=== PATIENT | female | born 1995 | race Caucasian/White ===

== ENCOUNTER 2018-07-11 12:24 | Outpatient (CLI) | payer MEDICAID ==
[~2018-07-11] VITALS: Ht 157.5 cm; Wt 85.9 kg
[2018-07-11 12:28] VITALS: Ht 157.5 cm; Wt 85.9 kg
[2018-07-11] MEDS ORDERED: PREN1TAB71 PO (12:30)
[2018-07-11 12:41] VITALS: BP 115/73; PULSE 88; RESP 18
--- NOTE | 2018-07-11 14:25 | PN ---
Triage Information Date/Time Reason for visit: Uterine contractions Weeks of Gestation 28+ /Para n/a Diabetes: none Hypertention: none Objective Vital Signs Date Temp Pulse Resp B/P (MAP) Pulse Ox O2 O2 Flow FiO2 Time Delivery Rate 07/11/18 98.2 88 18 115/73 Room Air 12:41 (87) Heart Rate: 140's Contractions: None Results/Medications Result Diagram: 07/11/18 1330 07/11/18 1330 Results 24 hrs Laboratory Tests Test 07/11/18 13:11 07/11/18 13:30 Fibronectin NEGATIVE White Blood Count 9.7 Red Blood Count 4.11 L Hemoglobin 12.1 Hematocrit 36.5 L Mean Corpuscular Volume 88.8 Mean Corpuscular Hemoglobin 29.4 Mean Corpuscular Hemoglobin Concent 33.2 Red Cell Distribution Width 13.3 Platelet Count 237 Mean Platelet Volume 9.4 Immature Granulocytes % 1.200 H Neutrophils % 63.5 Lymphocytes % 21.6 Monocytes % 8.1 Eosinophils % 5.3 Basophils % 0.3 Nucleated Red Blood Cells % 0.0 Immature Granulocytes # 0.120 H Neutrophils # 6.2 Lymphocytes # 2.1 Monocytes # 0.8 Eosinophils # 0.5 Basophils # 0.0 Nucleated Red Blood Cells # 0.0 Sodium Level 138 Potassium Level 3.9 Chloride Level 104 Carbon Dioxide Level 28 Anion Gap 6 Blood Urea Nitrogen 6 L Creatinine 0.44 Est Glomerular Filtrat Rate mL/min > 60 Glucose Level 89 Calcium Level 9.5 Total Bilirubin 0.3 Direct Bilirubin 0.00 Indirect Bilirubin 0.3 Aspartate Amino Transf (AST/SGOT) 21 Alanine Aminotransferase (ALT/SGPT) 23 Alkaline Phosphatase 84 Total Protein 6.8 Albumin 3.6 Globulin 3.20 Albumin/Globulin Ratio 1.12 Disposition: Discharge Assessment/Plan Bpp 01/13 Labs reviewed CXL WNL Precautions discussed Questions answered Sent to ER for further work up BRANNON CONTRERAS M.D. Jul 11, 2018 14:25
--- NOTE | 2018-07-11 14:40 | TRIAGE ---
OB Triage Datetime Report Generated by CPN: 07/11/2018 14:39 Datetime: 07/11/2018 14:00 Labor Evaluation Frequency: occ Monitor Mode: External Duration (sec)2399: 50-60 Quality: Mild Pattern: Normal: <= 5 Contractions in 10 Minutes Resting Tone Post Falls: Relaxed Heart Rate FHR Baseline Rate: 145 Monitor Mode: External US Variability: Moderate 6-25 bpm Accelerations: 15X15 Decelerations: Variable Category: Category II Comments: appropriate for gestational age Pain Assessment Pain Presence: None/Denies Datetime: 07/11/2018 13:00 Labor Evaluation Frequency: irreg Monitor Mode: External Duration (sec)2399: 40-50 Quality: Mild Pattern: Normal: <= 5 Contractions in 10 Minutes Resting Tone Post Falls: Relaxed Heart Rate FHR Baseline Rate: 140 Monitor Mode: External US Variability: Moderate 6-25 bpm Accelerations: 15X15 Decelerations: Variable Category: Category II Pain Assessment Pain Presence: None/Denies Datetime: 07/11/2018 12:37 Stage of : OB Triage Assessment Type: Triage Maternal Assessment Level of Consciousness: Fully Conscious Headache: Denies Blurred Vision: No Respiratory Effort: Unlabored; Regular Rhythm; Equal Expansion Breath Sounds, Left: Clear and Equal Breath Sounds, Right: Clear and Equal Nausea/Vomiting: Present RUQ Epigastric Pain: Present (Annotations: last vomitted today at midnight) Lower Extremities Edema: None Degree: None Upper Extremities Edema: None Degree: None Facial Edema: None Fall Risk Assessment History of Falling: (0) No Secondary Diagnosis: (0) No Ambulatory Aid: (0) Bedrest/Nurse Assist IV Therapy: (0) No Gait: (0) Normal/Bedrest/Immobile Mental Status: (0) Oriented to Own Ability Fall Score: 0 Fall Risk Score Definition: No Risk: No action required Datetime: 07/11/2018 12:36 Time of Arrival: 07/11/2018 12:18 EGA: 28.3 Arrived By: Wheelchair Arrived From: Home Movement: Present Contractions: Occasional Rupture of Membranes: Denies Vaginal Bleeding: None Vaginal Discharge: Denies Recent Sexual Intercouse: Denies Abdominal Trauma: Not Applicable Patient Complaints: Nausea; Vomiting; Cough Time Provider Notified: 07/11/2018 12:42 Provider Notified: Shen Initial Plan: nichol stubbs
[2018-07-11] MEDS ORDERED: BEN25 PO (15:14)
== END 2018-07-11 14:28 | disposition home or self-care (01) ==
LOC: OBT 12:24 → L-D 12:25 → OBT 14:28
PROVIDERS: ATTEND Obstetrics & Gynecology
DX: O62.9 Abnormality of forces of labor, unspecified (principal); Z3A.28 28 weeks gestation of pregnancy
CPT/HCPCS: 36415; 76817; 76818; 80053; 82731; 85025; Z7500; G0463

== ENCOUNTER 2018-07-11 14:32 | Emergency (ER) | payer MEDICAID ==
[~2018-07-11] VITALS: Ht 160 cm; Wt 85.5 kg
[~2018-07-11 14:32] MED LIST: PREN1TAB71 PO
[2018-07-11 14:42] VITALS: BP 116/56; PULSE 73; RESP 20; Ht 160 cm; Wt 85.5 kg
[2018-07-11] MEDS ORDERED: BEN25 PO (15:14)
--- NOTE | 2018-07-11 16:11 | ERD ---
ER Documentation Chief Complaint Chief Complaint c/o cough for a while, was here recently. Afebrile HPI 22-year-old female patient with no significant past medical history presents to ED complaining of a productive cough that started intermittently for the last 2 weeks. States that her is also sick with the cough. Patient currently is 28 weeks . States that she is unsure what her last menstruation date was. Denies any vaginal bleeding, vaginal discharge, dysuria, urgency, frequency, abdominal pain, chest pain, shortness of breath. ROS All systems reviewed and are negative except as per history of present illness. Medications Home Meds Active Scripts Diphenhydramine Hcl* (Benadryl*) 25 Mg Cap, 25 MG PO Q6, #30 CAP Prov:JAMAR FOURNIER PA-C 07/11/18 Reported Medications Vit No.130/Iron/FA ( Tablet) 1 Each Tablet, 1 EACH PO, TAB 07/11/18 Allergies Allergies: Coded Allergies: No Known Allergy (Unverified , 07/11/18) PMhx/Soc Medical and Surgical Hx: pt denies Medical Hx, pt denies Surgical Hx Hx Alcohol Use: No Hx Substance Use: No Hx Tobacco Use: No FmHx Family History: No diabetes, No coronary disease Physical Exam Vitals Vital Signs Date Temp Pulse Resp B/P (MAP) Pulse Ox O2 O2 Flow FiO2 Time Delivery Rate 07/11/18 98.6 73 20 116/56 99 14:42 (76) Physical Exam Const: Gwn-ywp-[id number], well-nourished. In no acute distress. Head: Atraumatic, normocephalic Eyes: Normal Conjunctiva without injection. No purulent discharge. PERRL. EOMI ENT: Normal external ear. Ear canal without erythema. Tympanic membrane pearly barahona without effusion or bulging. Nasal canal clear with normal turbinates. Moist oropharynx without tonsillar exudates. Non-erythematous pharynx. Uvula midline. No drooling. No trismus. Neck: Full range of motion. No meningismus. No cervical lymphadenopathy. Resp: Clear to auscultation bilaterally. No wheezing, rhonchi, rales, or crackles. No accessory muscle use. No retractions. Cardio: Regular rate and rhythm. No murmurs, rubs or gallops. Abd: Soft, non tender, non distended. Normal bowel sounds. No palpable masses. No rebound tenderness. No guarding. Skin: No petechiae or rashes Back: No midline tenderness. No CVA tenderness. Ext: No cyanosis, or edema. Neur: Awake and alert. Psych: Normal Mood and Affect Procedures/MDM 22-year-old female patient with no significant past medical history presents to ED for complaining of a productive cough that started 2 weeks ago during her . Patient is afebrile and nontoxic-appearing. This patient presents to the ED with symptoms consistent with a viral acute upper respiratory infection. Patient is afebrile and has normal vital signs. Patient's physical exam include lungs which were clear to auscultation and a normal pulse oximetry. There is a low suspicion for a croup, pneumonia, pneumothorax, strep pharyngitis, otitis media, otitis externa, sinusitis, peritonsillar abscess, foreign body aspiration, mastoiditis, retropharyngeal abscess, epiglottitis, meningitis, sepsis or other emergent conditions. Patient is not complaining of any vaginal bleeding, dysuria, abdominal pain. Low suspicion for symptomatic anemia, ectopic , sepsis, urinary tract infection, PID, appendicitis, ovarian torsion, tubo-ovarian abscess, surgical abdomen, or other emergent conditions. Diagnosis: Cough Discharge medications: Benadryl Follow up with primary care physician in 1-2 days. Instructed patient to return to the ED sooner for any worsening symptoms. Patient's questions were answered. Patient is hemodynamically stable. Patient understood and agreed with discharge plan. Patient discharged stable. Disclaimer: Inadvertent spelling and grammatical errors are likely due to EHR/dictation software use and do not reflect on the overall quality of patient care. Also, please note that the electronic time recorded on this note does not necessarily reflect the actual time of the patient encounter. Departure Diagnosis: Primary Impression: Cough Condition: Stable Patient Instructions: Uri, Viral, No Abx (Adult) Referrals: DIRECTOR [employer]ESSIONAL SERVICES [place] [id number] [address] OFFICE FAX SAJAN DE LA VEGA [address] [place] [address] [address] [address] [place] [address] DR STEVENS, [facility] [address] [facility], [address], [place] [address] [address] [facility] [address] [place] [address] [facility] [address] [place] [address] [facility] [address] - [address] RIVER, SONIDO [address] [place] [address] DR REESE, KORIN [address] [facility]. [address], [place] [address] DR LOCO, [facility] [address] [place], [place] [id number] [facility] Hours: 8:00 am - 5:00 pm [facility] () Usted se rangel hecho un examen mdico de control que le indica que no est en adonay condicin que requiera tratamiento urgente en el Departamento de Emergencia. Un estudio ms profundo y el tratamiento de randolph condicin pueden esperar sin ningn riesgo hasta que usted sea atendida/o en el consultorio de randolph mdico o adonay clnica. Es responsabilidad suya arreglar adonay marifer para el seguimiento del scot. MANEJO DE CONDICIONES NO URGENTES EN EL FUTURO 1) Si usted tiene un mdico de atencin primaria: Usted debera llamar a randolph mdico de atencin primaria antes de venir al departamento de emergencia. Despus de las horas de consultorio, randolph doctor o randolph asociado/a est disponible por telfono. El mdico o enfermero de radha en el servicio telefnico puede asesorarle por nely medio para atender el problema, o scot contrario se puede programar adonay marifer. 2) Si usted no tiene un mdico de atencin primaria: Llame al mdico o clnica de referencia que aparece abajo nuno las horas de consultorio para hacer adonay marifer para que le vean. CLINICAS: [facility] [phone] [address] [facility] [phone] [facility] [phone] [place] [address] [phone] [place] [address] [phone] [facility] [phone] [address] [facility]. [facility] () Usted se rangel hecho un examen mdico de control que le indica que no est en adonay condicin que requiera tratamiento urgente en el Departamento de Emergencia. Un estudio ms profundo y el tratamiento de randolph condicin pueden esperar sin ningn riesgo hasta que usted sea atendida/o en el consultorio de randolph mdico o adonay clnica. Es responsabilidad suya arreglar adonay marifer para el seguimiento del scot. MANEJO DE CONDICIONES NO URGENTES EN EL FUTURO 1) Si usted tiene un mdico de atencin primaria: Usted debera llamar a randolph mdico de atencin primaria antes de venir al departamento de emergencia. Despus de las horas de consultorio, randolph doctor o randolph asociado/a est disponible por telfono. El mdico o enfermero de radha en el servicio telefnico puede asesorarle por nely medio para atender el problema, o scot contrario se puede programar adonay marifer. 2) Si usted no tiene un mdico de atencin primaria: Llame al mdico o condado institucions de referencia que aparece abajo nuno las horas de consultorio para hacer adonay marifer para que le vean. SI USTED NO PUEDE PAGAR PARA MADDIE UN MEDICO puede ir a: [facility] [address] [place] [address] [facility] [address] [place] [address] [facility] [address] [place] [address] [facility] [address] [place], [place] [id number] Additional Instructions: Llame al doctor MAANA y paramjit adonay MARIFER PARA DENTRO DE 2-3 ANSARI.Dgale a la secretaria que nosotros le instruimos hacer esta marifer.Avise o llame si randolph cond icin se empeora antes de la marifer. Regresa aqui si peor o no mejor. JAMAR FOURNIER PA-C Jul 11, 2018 16:11
== END 2018-07-11 15:30 | disposition home or self-care (01) ==
LOC: FTE 14:32
DX: O99.52 Diseases of the respiratory system complicating childbirth (principal); R05 Cough; Z3A.28 28 weeks gestation of pregnancy
CPT/HCPCS: 99282

== ENCOUNTER 2018-09-29 03:15 | Inpatient (IN) | payer MEDICAID ==
[~2018-09-29] VITALS: Ht 157.5 cm; Wt 92.0 kg
[~2018-09-29 03:15] MED LIST changes: +BEN25 PO
[2018-09-29 03:57] VITALS: Ht 157.5 cm; Wt 92.0 kg
[2018-09-29 03:58] VITALS: BP 135/93; PULSE 18; RESP 18
[2018-09-29] MEDS ORDERED: LACTATED RINGER'S 1,000 ML IV PRN (04:01)
[2018-09-29] MEDS ORDERED: OXYTOCIN 30 UNITS/LR 500 ML IV PRN (04:30)
[2018-09-29] MEDS ORDERED: OXYTOCIN 30 UNITS/LR 500 ML IV SCH ×2 (04:30)
[2018-09-29] MEDS ORDERED: MISOPROSTOL 200 MCG TAB PR PRN (04:30)
[2018-09-29] MEDS ORDERED: MISOPROSTOL 50 MCG CAPSULE PO PRN (04:30)
[2018-09-29] MEDS ORDERED: LIDOCAINE 1% (MPF) 30 ML INJ INJ PRN (04:30)
[2018-09-29] MEDS ORDERED: METHYLERGONOVINE 0.2 MG INJ IM PRN (04:30)
[2018-09-29] MEDS ORDERED: OXYCODONE/ACETAMINOPHEN (5/325) TAB PO PRN (04:30)
[2018-09-29] MEDS ORDERED: CARBOPROST 250 MCG INJ IM PRN (04:30)
--- NOTE | 2018-09-29 04:39 | TRIAGE ---
OB Triage Datetime Report Generated by CPN: 09/29/2018 04:39 Datetime: 09/29/2018 04:06 Vaginal Exam Dilatation (cms): 1.5 Effacement (%): 80 Station: -2 Exam By: Vera Gray RN Membrane Status: Intact Vaginal Bleeding: None Cervix, Consistency: Soft Cervix, Position: Posterior Presentation 'A': Cephalic Datetime: 09/29/2018 03:42 Time of Arrival: 09/29/2018 03:10 EGA: 39.6 Arrived By: Wheelchair Arrived From: Home Chief Complaint: UC's Movement: Present Contractions: Irregular Time Contractions Began: 09/29/2018 00:00 Contractions: Every 6-10 minutes Rupture of Membranes: Denies Vaginal Bleeding: None Vaginal Discharge: Denies Recent Sexual Intercouse: Denies Abdominal Trauma: Not Applicable Patient Complaints: Contractions Time Provider Notified: 09/29/2018 04:10 Provider Notified: Dr. Lepe Initial Plan: CEFM Datetime: 09/29/2018 03:40 Stage of : OB Triage Assessment Type: Triage Maternal Assessment Level of Consciousness: Keenly Alert, Responsive DTR's/Clonus: DTRs 2+; No Clonus Headache: Denies Blurred Vision: No Respiratory Effort: Unlabored; Regular Rhythm; Equal Expansion Breath Sounds, Left: Clear and Equal Breath Sounds, Right: Clear and Equal Nausea/Vomiting: Denies RUQ Epigastric Pain: Denies Lower Extremities Edema: Bilateral Lower Extremities Degree: 2+ Upper Extremities Edema: None Degree: None Facial Edema: None Temperature Route: Oral Fall Risk Assessment History of Falling: (0) No Secondary Diagnosis: (0) No Ambulatory Aid: (0) Bedrest/Nurse Assist IV Therapy: (0) No Gait: (0) Normal/Bedrest/Immobile Mental Status: (0) Oriented to Own Ability Fall Score: 0 Fall Risk Score Definition: No Risk: No action required Pain Assessment Pain Scale: 7 Pain Presence: Intermittent Pain Type: Cramping Pain Location: Abdomen; Back Datetime: 09/29/2018 03:27 EGA: 28.3 Datetime: 07/11/2018 12:37 Fall Score: 0 Fall Risk Score Definition: No Risk: No action required Datetime: 07/11/2018 12:36 EGA: 28.3
[2018-09-29] MEDS ORDERED: MINERAL OIL LIGHT 10 ML VIAL TOP PRN (05:00)
[2018-09-29] MEDS: LACTATED RINGER'S 1,000 ML IV SCH ×3 (05:30→20:29)
[2018-09-29] MEDS ORDERED: SODIUM CHLORIDE 0.9% 1L IRRIG IRR SCH (06:30)
[2018-09-29] MEDS: MISOPROSTOL 50 MCG CAPSULE PO SCH ×4 (09:48→22:58)
--- NOTE | 2018-09-29 09:55 | HP ---
Date/Time of Note Date/Time of Note DATE: 09/29/18 TIME: 09:32 OB - History Hx of Present Free Text/Dictation 23 years old 1 with single intrauterine at 39 weeks and 6 days with CORI of 09/30/2018 complaining of uterine contractions. She states good movement. She denies nausea, vomiting, shortness of breath, chest pain, headache, visual changes, vaginal bleeding or LOF. Chief Complaint: Uterine contractions Estimated Due Date: Sep 30, 2018 : 1 Care: Good Care Ultrasounds: Normal mid trimester US Obstetrical Complications: None Medical Complications: None Past Family/Social History * Past Medical, Surgical, Family and Obstetric Histories reviewed from chart. Blood Type: B+ Rubella: immune RPR/VDRL: Negative GBS Status: Negative HBsAG: Negative OB Admission Exam Vital Signs Vital Signs Vital Signs Date Temp Pulse Resp B/P (MAP) Pulse Ox O2 O2 Flow FiO2 Time Delivery Rate 09/29/18 98.5 18 18 135/93 Room Air 03:58 (107) Physical Exam HEENT: WNL Heart: Rhythm Normal Lungs: Clear Abdomen: WNL Extremities: Normal Cervical Dilatation: 2cm Effacement: 75% Station: -3 Membranes: Intact Heart Rate: 140's Accelerations: Accelerations Present Decelerations: No Decelerations Varibility: Moderate Contractions on Admission: 6-10 Minutes Apart Intensity: Mild Last 72 hours Lab Results CBC & BMP 09/29/18 04:30 Liver Function Test 09/29/18 04:30 Alanine Aminotransferase (ALT/SGPT) 25 Albumin 3.4 Alkaline Phosphatase 174 H Aspartate Amino Transf (AST/SGOT) 26 Direct Bilirubin 0.00 Total Protein 6.5 OB Assessment/Plan Other plan: 23 years old 1 with single intrauterine at 39 weeks and 6 weeks with gestational hypertension in early labor -FHR: No sign of metabolic acidosis- Category I -Continuous EFM, toco -CBC, blood type and screen -Augmentation of labor with Cytotec -Call analgesia options with R/B/A discussed in detail with patient -Epidural per patient request -Please see the orders -O+/Rubella: Immune -GBS: Negative Admission, procedures, expectations, risks and possible complications have been discussed in detail with the patient. Risk of vaginal delivery including but not limited to bleeding, infection, cervical laceration, placental retention, injury to fetus, blood transfusion, blood transfusion related infection, risk of anesthesia, adhesion, cervical laceration, episiotomy/laceration, possible delivery with risk of bleeding, infection, injury to other organs (bowel, bladder, ureter, vessels, nerves), injury to fetus, blood transfusion, blood transfusion related infection, risk of anesthesia, scar and hernia formation, needs for future , removal of uterus or any other indicated surgery discussed with the patient. She expressed understanding and repeats the risks. All of her questions were answered. She signed the informed consent. PHYSICIAN'S VERIFICATION OF INFORMED CONSENT The patient was counseled regarding the procedure, its indications, risks, potential complications and alternatives and any questions were answered. Consent was obtained. PLANNED PROCEDURE/TREATMENT: Vaginal delivery, episiotomy, repair of laceration possible delivery TENISHA RODRIGUEZ Sep 29, 2018 09:54
[2018-09-29] MEDS: BUTORPHANOL 2 MG INJ IV PRN (18:59)
[2018-09-30] MEDS: BUTORPHANOL 2 MG INJ IV PRN (00:42)
[2018-09-30] MEDS: MISOPROSTOL 50 MCG CAPSULE PO SCH ×2 (03:11→08:02)
[2018-09-30] MEDS: LACTATED RINGER'S 1,000 ML IV SCH ×2 (04:36→12:10)
--- NOTE | 2018-09-30 16:23 | PREAC ---
Date/Time of Note Date/Time of Note DATE: 09/30/18 TIME: 16:22 Anesthesia Eval and Record Evaluation Time Pre-Procedure Interview DATE: 09/30/18 TIME: 16:22 Age 23 Sex female NPO: 8 hrs Preoperative diagnosis laboe pain Planned procedure epidural Past Medical History Past Medical History: Includes : Gestational age: (40) Surgery & Anesthesia Issues No known issue Meds Anticoagulation: No Beta Katharina within 24 hr: No Reason Beta Katharina not given: Pt. not on B-Katharina Reported Medications Vit No.130/Iron/FA ( Tablet) 1 Each Tablet, 1 EACH PO, TAB 07/11/18 Discontinued Scripts Diphenhydramine Hcl* (Benadryl*) 25 Mg Cap, 25 MG PO Q6, #30 CAP Prov:JAMAR FOURNIER PA-C 07/11/18 Current Medications Lactated Ringer's 1,000 ml @ 125 mls/hr Q8H IV Last administered on 09/30/18at 12:10; Admin Dose 125 MLS/HR; Start 09/29/18 at 04:01 Butorphanol Tartrate (Stadol) 2 mg Q2H PRN IV .PAIN SCALE 6-10 Last administered on 09/30/18at 00:42; Admin Dose 2 MG; Start 09/29/18 at 04:30 Lidocaine (Xylocaine 1% (Mpf)) 30 ml ONCE PRN INJ .EPISIOTOMY; Start 09/29/18 at 04:30 Oxytocin/Lactated Ringer's 500 ml @ 500 mls/hr ONCE POST IV ; Start 09/29/18 at 04:30 Oxytocin/Lactated Ringer's 500 ml @ 125 mls/hr POST IV ; Start 09/29/18 at 04:30 Oxycodone/ Acetaminophen (Percocet (5/ 325)) 2 tab ONCE PRN PO .PAIN 6-10; Start 09/29/18 at 04:30 Lactated Ringer's 1,000 ml @ 2,000 mls/hr Q30M PRN IV .ANESTHESIA Last administered on 09/30/18at 16:12; Admin Dose 2,000 MLS/HR; Start 09/29/18 at 04:01 Oxytocin/Lactated Ringer's 500 ml @ 0 mls/hr ONCE PRN IV .VAGINAL BLEEDING; Start 09/29/18 at 04:30 Methylergonovine Maleate (Methergine) 0.2 mg ONCE PRN IM .VAGINAL BLEEDING; Start 09/29/18 at 04:30 Carboprost Tromethamine (Hemabate) 250 mcg ONCE PRN IM .VAGINAL BLEEDING; Start 09/29/18 at 04:30 Misoprostol (Cytotec) 1,000 mcg ONCE PRN AZ .VAGINAL BLEEDING; Start 09/29/18 at 04:30 Misoprostol (Cytotec 50 Mcg Capsule) 50 mcg Q4 PRN PO CERVICAL RIPENING; Start 09/29/18 at 04:30 Mineral Oil (Muri-Lube) 30 ml PRN PRN TOP NOTE; Start 09/29/18 at 05:00 Misoprostol (Cytotec 50 Mcg Capsule) 100 mcg ONCE ONCE VAG ; Start 09/30/18 at 16:30; Stop 09/30/18 at 16:31; Status UNV Meds reviewed: Yes Allergies Coded Allergies: No Known Allergy (Unverified , 09/29/18) Allergies Reviewed: Yes Labs/Studies Labs Reviewed: Reviewed by anesthesiologist Result Diagram: 09/29/18 04309/29/18 043 test: Positive Studies: ECG (n/a), CXR (n/a) Pre-procedure Exam Last vitals Vital Signs Date Temp Pulse Resp B/P (MAP) Pulse Ox O2 O2 Flow FiO2 Time Delivery Rate 09/29/18 98.5 18 18 135/93 Room Air 03:58 (107) Airway: Adequate mouth opening Mallampati: Mallampati I Teeth: Normal Lung: Normal Heart: Normal ASA Physical Status ASA physical status: 2 Emergency: None Planned Anesthetic Neuraxial: Epidural Pre-operative Attestations Prior to commencing anesthesia and surgery, the patient was re-evaluated, there was verification of: *The patient's identity *The results of appropriate recent lab work and preoperative vital signs *The above evaluation not changing prior to induction *Anesthetic plan, risk benefits, alternative and complications discussed with patient/family; questions answered; patient/family understands, accepts and wishes to proceed. YOVANI WATTS MD Sep 30, 2018 16:23
[2018-09-30] MEDS ORDERED: FENTAnyl 2MCG/ML-ROPIV 0.2% 100 ML ONE (16:25)
[2018-09-30] MEDS ORDERED: NALOXONE (0.4 MG/ML) INJ IV PRN (16:30)
[2018-09-30] MEDS ORDERED: ONDANSETRON 4 MG INJ IV PRN (16:30)
[2018-09-30] MEDS ORDERED: MISOPROSTOL 50 MCG CAPSULE VAG ONE (16:30)
[2018-09-30] MEDS ORDERED: DIPHENHYDRAMINE 50 MG INJ IV PRN (16:30)
[2018-09-30] MEDS: FENTAnyl 2MCG/ML-ROPIV 0.2% 100 ML BAG EPI SCH (17:05)
[2018-09-30] MEDS ORDERED: OXYTOCIN 30 UNITS/LR 500 ML IV SCH ×2 (17:30→19:30)
[2018-10-01] MEDS ORDERED: AMPICILLIN 2 GM/NS (PMX) 100 ML IV ONE (01:00)
[2018-10-01] MEDS: FENTAnyl 2MCG/ML-ROPIV 0.2% 100 ML BAG EPI SCH (01:36)
[2018-10-01] MEDS: LACTATED RINGER'S 1,000 ML IV SCH (02:03)
[2018-10-01] MEDS ORDERED: CLINDAMYCIN 900 MG/D5W (PMX) 50 ML IVPB SCH (03:00)
[2018-10-01] MEDS ORDERED: ACETAMINOPHEN 1000MG/100ML IV 100 ML IVPB ONE (03:00)
[2018-10-01] MEDS ORDERED: GENTAMICIN 80 MG/NS (PMX) 50 ML IVPB SCH (03:00)
[2018-10-01] MEDS ORDERED: OXYTOCIN 30 UNITS/LR 500 ML IV SCH (03:45)
--- NOTE | 2018-10-01 03:50 | LDN ---
Date/Time of Note Date/Time of Note DATE: 10/01/18 TIME: 03:48 Delivery Summary Weeks of Gestation Term gestation Placenta Delivered: Spontaneously Meconium: none Episiotomy: No Laceration repair: Superficial laceration repaired with 3-0 chromic Anesthesia type: Epidural Estimated blood loss: 350 Sponge & Needle done & correct: Yes All needle counts correct: Yes Any foreign bodies felt in the: No Infant Delivery Information Sex Infant Sex: female Apgars 1 Minute: 8 5 Minute: 9 Suctioning Nose & mouth suctioned at cheko: Yes Delee suction performed: No Umbilical Cord Umbilical cord with: 3 Vessels Cord presentations: nuchal cord (X2 tight around the neck and the body manually reduced) Cord Blood was obtained: Yes Mother & Baby Disposition Disposition Baby's weight 6 pounds 1 ounces/ 2760 g Patient received Cytotec 1000 mcg per rectum Mom & Baby to Maternity; Good: Yes Baby to NICU: No Copies To: CC: TENISHA RODRIGUEZ BAHAREH MD Oct 01, 2018 03:50
[2018-10-01] MEDS ORDERED: ACETAMINOPHEN 325 MG TAB PO PRN ×2 (04:00)
[2018-10-01] MEDS ORDERED: IBUPROFEN 600 MG TAB PO PRN (04:00)
[2018-10-01] MEDS ORDERED: LANOLIN HPA 1 PKT TOP PRN (04:00)
[2018-10-01] MEDS ORDERED: ONDANSETRON 4 MG INJ IV PRN (04:00)
[2018-10-01] MEDS ORDERED: SENNA/DOCUSATE NA (8.6MG/50MG) TAB PO PRN (04:00)
[2018-10-01] MEDS ORDERED: MAGNESIUM HYDROXIDE 30ML CUP PO PRN (04:00)
[2018-10-01] MEDS ORDERED: MISOPROSTOL 200 MCG TAB PR PRN (04:00)
[2018-10-01] MEDS ORDERED: OXYTOCIN 30 UNITS/LR 500 ML IV PRN (04:00)
[2018-10-01] MEDS ORDERED: CARBOPROST 250 MCG INJ IM PRN (04:00)
[2018-10-01] MEDS ORDERED: DIBUCAINE 1% 30 GM OINT TOP PRN (04:00)
[2018-10-01] MEDS ORDERED: BENZOCAINE 20% 56 ML SPRAY TOP PRN (04:00)
[2018-10-01] MEDS ORDERED: WITCH HAZEL/GLYCERIN PAD PR PRN (04:00)
[2018-10-01] MEDS ORDERED: METHYLERGONOVINE 0.2 MG INJ IM PRN (04:00)
[2018-10-01] MEDS ORDERED: AMPICILLIN 1 GM/NS (PMX) 50 ML IV SCH (05:00)
[2018-10-01 05:45] VITALS: BP 139/88; PULSE 88; RESP 18
[2018-10-01 06:45] VITALS: BP 120/74; PULSE 85; RESP 19
[2018-10-01 08:00] VITALS: BP 133/84; PULSE 83; RESP 18
[2018-10-01] MEDS: LACTATED RINGER'S 1,000 ML IV* SCH ×3 (08:41→19:45)
[2018-10-01] MEDS: PIPER-TAZO 3.375 GM IV (PMX) 100 ML IVPB SCH ×3 (08:41→21:12)
--- NOTE | 2018-10-01 09:33 | PAC ---
Date/Time of Note Date/Time of Note DATE: 10/01/18 TIME: 09:32 Post-Anesthesia Notes Post-Anesthesia Note Last documented vital signs Vital Signs Date Temp Pulse Resp B/P (MAP) Pulse Ox O2 O2 Flow FiO2 Time Delivery Rate 10/01/18 98.2 85 19 120/74 97 Room Air 06:45 (89) Activity: WNL Respiratory function: WNL Cardiovascular function: WNL Mental status: Baseline Pain reasonably controlled: Yes Hydration appropriate: Yes Nausea/Vomiting absent: No YOVANI WATTS MD Oct 01, 2018 09:33
[2018-10-01 12:00] VITALS: BP 140/97; PULSE 76; RESP 18
[2018-10-01 16:00] VITALS: BP 147/95; PULSE 70; RESP 18
[2018-10-01 19:55] VITALS: BP 134/83; PULSE 78; RESP 18
[2018-10-02] MEDS: PIPER-TAZO 3.375 GM IV (PMX) 100 ML IVPB SCH ×3 (03:00→13:02)
[2018-10-02] MEDS: LACTATED RINGER'S 1,000 ML IV* SCH ×2 (03:45→13:01)
[2018-10-02 03:55] VITALS: BP 125/79; PULSE 72; RESP 19
[2018-10-02 08:00] VITALS: BP 113/72; PULSE 61; RESP 18
--- NOTE | 2018-10-02 13:36 | PN ---
Date/Time of Note Date/Time of Note DATE: 10/02/18 TIME: 13:26 OB Subjective Subjective Subjective PPD# 1 Patient is doing well. She denies nausea, vomiting, shortness of breath, chest pain, headache. She has been ambulating without difficulty, tolerating regular diet. Pain is well controlled on current medications OB Objective Objective Objective VS - Last 72 Hours, by Label Date Temp Pulse Resp B/P (MAP) Pulse Ox O2 O2 Flow FiO2 Time Delivery Rate 10/02/18 97.8 61 18 113/72 Room Air 08:00 (86) 10/02/18 98.2 72 19 125/79 Room Air 03:55 (94) 10/01/18 98.1 78 18 134/83 Room Air 19:55 (100) 10/01/18 97.8 70 18 147/95 Room Air 16:00 (112) 10/01/18 98.2 76 18 140/97 Room Air 12:00 (111) 10/01/18 98.6 83 18 133/84 Room Air 08:00 (100) 10/01/18 98.2 85 19 120/74 Room Air 06:45 (89) 10/01/18 98.3 88 18 139/88 Room Air 05:45 (105) 10/01/18 102.7 03:33 General: AAO X 3, comfortable, NAD, appropriate mood and affect. ABD: +BS. Soft, non-tender. Uterus 2 cm below umbilicus Flank: No CVA tenderness (B/L) LE: Mild edema. No clubbing, cyanosis, thigh or calf tenderness (B/L). Homans 'sign is negative OB Assessment/Plan Other plan: 23-year-old 1 para 1-0-0-1 with gestational hypertension s/p normal vaginal delivery at 40 weeks and 1 day. PPD#1 - AF, VSS - Baby is doing well, at bed side. She is bonding well - Contraception methods with R/B/A/FR discussed - Continue care TENISHA RODRIGUEZ Oct 02, 2018 13:36
[2018-10-02 16:05] VITALS: BP 125/84; PULSE 86; RESP 18
[2018-10-02 20:00] VITALS: BP 130/86; PULSE 80; RESP 16
[2018-10-03 03:44] VITALS: BP 126/88; PULSE 72; RESP 20
[2018-10-03 08:00] VITALS: BP 132/93; PULSE 82; RESP 18
--- NOTE | 2018-10-03 12:15 | PN ---
Date/Time of Note Date/Time of Note DATE: 10/03/18 TIME: 12:09 OB Subjective Subjective Subjective PPD# 2 Patient is doing well. She denies nausea, vomiting, shortness of breath, chest pain, headache. She has been ambulating without difficulty, tolerating regular diet. Pain is well controlled on current medications OB Objective Objective Objective VS - Last 72 Hours, by Label Date Temp Pulse Resp B/P (MAP) Pulse Ox O2 O2 Flow FiO2 Time Delivery Rate 10/03/18 97.8 82 18 132/93 Room Air 08:00 (106) 10/03/18 98.6 72 20 126/88 Room Air 03:44 (101) 10/02/18 98.7 80 16 130/86 Room Air 20:00 (101) 10/02/18 98.0 86 18 125/84 16:05 (98) 10/02/18 97.8 61 18 113/72 Room Air 08:00 (86) 10/02/18 98.2 72 19 125/79 Room Air 03:55 (94) 10/01/18 98.1 78 18 134/83 Room Air 19:55 (100) 10/01/18 97.8 70 18 147/95 Room Air 16:00 (112) 10/01/18 98.2 76 18 140/97 Room Air 12:00 (111) 10/01/18 98.6 83 18 133/84 Room Air 08:00 (100) 10/01/18 98.2 85 19 120/74 Room Air 06:45 (89) 10/01/18 98.3 88 18 139/88 Room Air 05:45 (105) 10/01/18 102.7 03:33 General: AAO X 3, comfortable, NAD, appropriate mood and affect. ABD: +BS. Soft, non-tender. Uterus 2 cm below umbilicus Flank: No CVA tenderness (B/L) LE: Mild edema. No clubbing, cyanosis, thigh or calf tenderness (B/L). Homans 'sign is negative OB Assessment/Plan Other plan: 23-year-old 1 para 1-0-0-1 with gestational hypertension s/p normal vag inal delivery at 40 weeks and 1 day. PPD#2 - AF, VSS - Baby is doing well, at bed side. She is bonding well - Contraception methods with R/B/A/FR discussed - Continue care - Discharge home tomorrow - Rx and instruction given - Follow up in 1 and 6 weeks at clinic -She states he would like to sign AMA and leave the hospital. Sign and symptom of preeclampsia with severe features discussed in detail, risk including but not limited to: seizures, pulmonary edema, hypertensive encephalopathy, stroke, renal failure, hepatic failure or rupture, retinal detachment, blindness, disseminated intravascular coagulation, other morbidities and (damage to heart, lungs, liver, kidneys, blood clot factor deficiency, separation of placenta, hemorrhage, edema of brain, blindness, stroke, ) discussed in detail with patient and her . She expressed understanding and repeat the risks. All of her questions answered. TENISHA RODRIGUEZ Oct 03, 2018 12:15
[2018-10-03 12:51] VITALS: BP 132/92; PULSE 95; RESP 18
[2018-10-03 16:00] VITALS: BP 129/89; PULSE 95; RESP 20
[2018-10-03 20:00] VITALS: BP 129/96; PULSE 88; RESP 18
[2018-10-04 03:52] VITALS: BP 137/93; PULSE 74; RESP 18
[2018-10-04 08:00] VITALS: BP 124/85; PULSE 88; RESP 18
[2018-10-04] MEDS ORDERED: FERROUS SULFATE (EC) 325 MG TAB PO SCH (09:00)
--- NOTE | 2018-10-04 10:43 | DS ---
Date/Time of Note Date/Time of Note DATE: 10/04/18 TIME: 10:41 Obstetrical Discharge Record Final Diagnosis Final Diagnosis: Term delivered Other Final Diagnosis Subjective: 23-year-old G1, day #3 from a vaginal delivery at term. Patient without complaints. Denies any headache or blurry vision. Breast and bottlefeeding. Ambulating. Vaginal bleeding within normal limits. Voiding. Tolerating regular diet. Objective: Vital signs within normal limits. H/H 10.6/30.4. General: No apparent distress. Breast: Normal. Fundus 2 fingerbreadths below the umbilicus. Extremities nontender to palpation. Blood Type: B+ Rubella: immune RPR/VDRL: Negative GBS Status: Negative HBsAG: Negative Assessment/plan: 1. JDT-51-gkkc-old G1 presented at 39 6/7 weeks with gestational hypertension and early labor. She was admitted to the hospital. Her hospital course was uncomplicated. She delivered male weighing 2760 g with Apgars 8 and 9 vaginally on 10/02/2018. Patient to be discharged home day 3 in stable condition with follow up in 6 weeks. 2. Gestational hypertensionvital signs within normal limits. Labs within normal limits. Symptomatic. Follow up in 1 week for blood pressure check. Patient advised on keeping a blood pressure log daily. 3. Acute blood lossH/H stable 11.133. Vitals stable. Ferrous sulfate. Laboratory Tests Test 10/04/18 09:09 White Blood Count 8.8 10^3/ul Red Blood Count 3.80 10^6/ul Hemoglobin 11.1 g/dl Hematocrit 33.0 % Mean Corpuscular Volume 86.8 fl Mean Corpuscular Hemoglobin 29.2 pg Mean Corpuscular Hemoglobin Concent 33.6 g/dl Red Cell Distribution Width 13.6 % Platelet Count 204 10^3/UL Mean Platelet Volume 10.8 fl Immature Granulocytes % 1.200 % Neutrophils % 51.8 % Lymphocytes % 32.0 % Monocytes % 6.8 % Eosinophils % 8.0 % Basophils % 0.2 % Nucleated Red Blood Cells % 0.2 /100WBC Immature Granulocytes # 0.110 10^3/ul Neutrophils # 4.6 10^3/ul Lymphocytes # 2.8 10^3/ul Monocytes # 0.6 10^3/ul Eosinophils # 0.7 10^3/ul Basophils # 0.0 10^3/ul Nucleated Red Blood Cells # 0.0 10^3/ul Current Medications Medications Dose Sig/Narendra Start Time Status Last (Trade) Ordered Route PRN Stop Time Admin Dose Reason Admin Lactated 1,000 ml @ Q8H IV 09/29/18 DC 10/01/18 Ringer's 125 mls/hr 04:01 02:03 10/01/18 06:15 Butorphanol 2 mg Q2H PRN 09/29/18 DC 09/30/18 Tartrate IV .PAIN 04:30 00:42 (Stadol) SCALE 6-10 10/01/18 05:26 Lidocaine 30 ml ONCE PRN 09/29/18 DC (Xylocaine INJ 04:30 1% (Mpf)) .EPISIOTOMY 10/01/18 05:26 500 ml @ ONCE POST 09/29/18 DC 10/01/18 Oxytocin/Lact 500 mls/hr IV 04:30 03:25 ated 10/01/18 06:15 Ringer's 500 ml @ POST 09/29/18 DC 10/01/18 Oxytocin/Lact 125 mls/hr IV 04:30 03:26 ated 10/01/18 06:15 Ringer's Oxycodone/ 2 tab ONCE PRN 09/29/18 Acetaminophen PO .PAIN 04:30 (Percocet 6-10 (5/ 325)) Lactated 1,000 ml @ Q30M PRN 09/29/18 DC 09/30/18 Ringer's 2,000 mls/hr IV 04:01 16:12 .ANESTHESIA 10/01/18 05:26 500 ml @ 0 ONCE PRN 09/29/18 DC Oxytocin/Lact mls/hr IV .VAGINAL 04:30 ated BLEEDING 10/01/18 06:15 Ringer's 0.2 mg ONCE PRN 09/29/18 Methylergonov IM .VAGINAL 04:30 ine Maleate BLEEDING (Methergine) Carboprost 250 mcg ONCE PRN 09/29/18 Tromethamine IM .VAGINAL 04:30 (Hemabate) BLEEDING Misoprostol 1,000 mcg ONCE PRN 09/29/18 10/01/18 (Cytotec) TN .VAGINAL 04:30 03:23 BLEEDING Misoprostol 50 mcg Q4 PRN PO 09/29/18 DC (Cytotec 50 CERVICAL 04:30 Mcg Capsule) RIPENING 10/01/18 05:26 Mineral Oil 30 ml PRN PRN 09/29/18 DC 10/01/18 (Muri-Lube) TOP NOTE 05:00 03:23 10/01/18 05:26 Sodium 1,000 ml PRN IRR 09/29/18 UNV Chloride 06:30 (NS (Irrig)) Misoprostol 50 mcg Q4 PO 09/29/18 DC 09/30/18 (Cytotec 50 09:00 08:02 Mcg Capsule) 09/30/18 16:12 Misoprostol 100 mcg ONCE ONCE 09/30/18 DC (Cytotec 50 VAG 16:30 Mcg Capsule) 09/30/18 16:33 25 mg Q4H PRN 09/30/18 Diphenhydrami IV .PRURITUS 16:30 ne HCl (Benadryl) Ondansetron 4 mg Q6H PRN 09/30/18 DC HCl (Zofran IV 16:30 Inj) .NAUSEA/VOMIT 10/01/18 06:15 ING Naloxone 0.2 mg Q2M PRN 09/30/18 DC HCl IV .RESP 16:30 (Narcan) RATE 10/01/18 06:15 Fentanyl/ 100 ml EPIDURAL 09/30/18 DC 10/01/18 Ropivacaine (PCEA) EPI 16:30 01:36 10/01/18 05:26 Fentanyl/ 100 ml @ ud STK-MED 09/30/18 DC Ropivacaine ONCE .ROUTE 16:25 09/30/18 16:26 500 ml @ 0 FOR 09/30/18 DC 09/30/18 Oxytocin/Lact mls/hr AUGMENTATION 17:30 17:33 ated IV 09/30/18 19:29 Ringer's 500 ml @ 0 FOR 09/30/18 DC 09/30/18 Oxytocin/Lact mls/hr INDUCTION 19:30 19:30 ated IV 10/01/18 05:26 Ringer's Ampicillin 100 ml @ ONCE ONCE 10/01/18 DC 10/01/18 100 mls/hr IV 01:00 00:58 10/01/18 05:21 Ampicillin 50 ml @ Q4H IV 10/01/18 DC 100 mls/hr 05:00 10/01/18 05:21 Gentamicin 50 ml @ Q8H IVPB 10/01/18 DC 10/01/18 Sulfate 104 mls/hr 03:00 03:37 10/01/18 05:21 Clindamycin 50 ml @ 50 ONCE IVPB 10/01/18 DC 10/01/18 HCl/ mls/hr 03:00 04:24 Dextrose 10/01/18 03:59 100 ml @ ONCE ONCE 10/01/18 DC 10/01/18 Acetaminophen 400 mls/hr IVPB 03:00 03:33 10/01/18 03:14 500 ml @ Q10H IV 10/01/18 DC Oxytocin/Lact 50 mls/hr 03:45 ated 10/01/18 13:44 Ringer's Lactated 1,000 ml @ Q8H IV* 10/01/18 DC 10/01/18 Ringer's 125 mls/hr 03:45 08:41 10/02/18 18:14 650 mg Q4H PRN 10/01/18 Acetaminophen PO .PAIN 1-5 04:00 (Tylenol Tab) Ondansetron 4 mg Q6H PRN 10/01/18 DC HCl (Zofran IV 04:00 Inj) NAUSEA/VOMITI 10/01/18 06:15 NG 1 tab BID PRN 10/01/18 Senna/Docusat PO 04:00 e Sodium .CONSTIPATION (Senokot-S) Magnesium 30 ml Q12H PRN 10/01/18 Hydroxide PO 04:00 (Milk Of Mag) .CONSTIPATION Witch 1 pad BEDSIDE 10/01/18 10/01/18 Kathy/ MEDICATION 04:00 14:47 Glycerin PRN TN (Tucks Pads) .HEMORRHOID/E PISIOTOMY PAIN Benzocaine 1 spray BEDSIDE 10/01/18 10/01/18 (Dermoplast MEDICATION 04:00 14:47 [place]aker) PRN TOP .HEMMORHOID/E PISIOTOMY PAIN Lanolin 1 applic BEDSIDE 10/01/18 10/01/18 (Lanolin Hpa) MEDICATION 04:00 14:47 PRN TOP .NIPPLES 650 mg Q4H PRN 10/01/18 Acetaminophen PO .TEMP 04:00 (Tylenol Tab) 500 ml @ 0 ONCE PRN 10/01/18 Oxytocin/Lact mls/hr IV .VAGINAL 04:00 ated BLEEDING Ringer's 0.2 mg ONCE PRN 10/01/18 DC Methylergonov IM .VAGINAL 04:00 ine Maleate BLEEDING 10/01/18 05:26 (Methergine) Carboprost 250 mcg ONCE PRN 10/01/18 DC Tromethamine IM .VAGINAL 04:00 (Hemabate) BLEEDING 10/01/18 05:26 Misoprostol 1,000 mcg ONCE PRN 10/01/18 DC (Cytotec) TN .VAGINAL 04:00 BLEEDING 10/01/18 05:26 Ibuprofen 600 mg Q6H PRN 10/01/18 10/02/18 (Motrin) PO PAIN 04:00 00:03 Dibucaine 1 applic BID PRN 10/01/18 (Nupercainal) TOP 04:00 HEMORRHOID/EP ISIOTMY PAIN Piperacillin 100 ml @ Q6 IVPB 10/01/18 DC 10/02/18 Sod/ 200 mls/hr 06:00 03:00 Tazobactam 10/02/18 18:14 Sod Ferrous 325 mg DAILY PO 10/04/18 10/04/18 Sulfate 09:00 09:12 (Ferrous Sulfate (Ec)) Laboratory Tests Test 10/04/18 09:09 Hematocrit 33.0 % Hemoglobin 11.1 g/dl Platelet Count 204 10^3/UL White Blood Count 8.8 10^3/ul Condition on Discharge Physical Assessment Patient Condition: Good MILESTMIGUEL HANSON MD Oct 04, 2018 10:43
--- NOTE | 2018-10-05 15:30 | DELSUM ---
Delivery Summary A-C Datetime Report Generated by CPN: 10/05/2018 15:29 DELIVERY PERSONNEL [employer] Worker: Joanie Faith MATERNAL INFORMATION Delivery Anesthesia: Epidural Medications in Delivery: 30uPITOCIN with LR Delivery QBL (ml): 350 Placenta Cultured: No Maternal Complications: Maternal Fever; Other Other Maternal Complications: HIGH BLOOD PRESSURE, OBESE, EDEMA OF HANDS AND FT, LABOR SUMMARY EDC: 09/30/2018 00:00 No. Babies in Womb: 1 Attempted: No Labor Anesthesia: Epidural (Annotations: Data stored by [facility] on behalf of user) LABOR INFORMATION Reason for Induction: Gest. HTN/PreEclam/Eclamp Onset of Labor: 09/29/2018 00:00 Complete Dilatation: 10/01/2018 02:13 Cervical Ripening Agents: Cytotec @ 50 MCG Group B Beta Strep: Negative Antibiotics # of Doses: 1 Antibiotics Time of Last Dose: 10/01/2018 00:58 Steroids Given: None Reason Steroids Not Administered: Not Applicable MEMBRANES Membranes Rupture Method: Spontaneous Rupture of Membranes: 10/01/2018 02:13 Length of Rupture (hr): 0.93 Amniotic Fluid Color: Light Meconium Amniotic Fluid Amount: Moderate Amniotic Fluid Odor: None STAGES OF LABOR Stage 1 hr: 50 Stage 1 min: 13 Stage 2 hr: 0 Stage 2 min: 56 Stage 3 hr: 0 Stage 3 min: 8 Total Time in Labor hr: 51 Total Time in Labor min: 17 VAGINAL DELIVERY Episiotomy: None Laceration Extension: N/A Laceration Type: Perineal Other Laceration: SUPERFICIAL LACERATION Laceration Repair: Yes Initial Vag Sponge Count: 10 Final Vag Sponge Count: 10 Initial Vag Sharps Count: 3 Final Vag Sharps Count: 3 Sponge Count Correct: Yes; Vaginal Sweep Performed Sharps Count Correct: Yes BABY A INFORMATION Infant Delivery Date/Time: 10/01/2018 03:09 Method of Delivery: Vaginal Born in Route : No : N/A Forceps: N/A Vacuum Extraction: N/A Shoulder Dystocia : N/A SHOULDER DYSTOCIA BABY A Infant Delivery Date/Time: 10/01/2018 03:09 PRESENTATION/POSITION BABY A Presentation: Cephalic Cephalic Presentation: Vertex Breech Presentation: N/A PLACENTA INFORMATION BABY A Placenta Delivery Time : 10/01/2018 03:17 Placenta Method of Delivery: Spontaneous Placenta Status: Delivered SCORES BABY A Heart Rate 1 min: >100 bpm Resp Effort 1 min: Good Cry Reflex Irritability 1 min: Cough/Sneeze/Pulls Away Muscle Tone 1 min: Active Motion Color 1 min: Blue/Pale Resuscitation Effort 1 min: Tactile Stimulation SCORE 1 MIN: 8 Heart Rate 5 min: >100 bpm Resp Effort 5 min: Good Cry Reflex Irritability 5 min: Cough/Sneeze/Pulls Away Muscle Tone 5 min: Active Motion Color 5 min: Body [place], Extremit Blue Resuscitation Effort 5 min: Tactile Stimulation SCORE 5 MIN: 9 INFANT INFORMATION BABY A Gestational Age at Delivery: 40.1 Gestational Status: Full Term- 39- 40.6 Weeks Outcome : Liveborn, with signs of life Condition : Stable Sex: Female IDENTIFICATION/MEDS BABY A ID Band Number: [id number] ID Band Location: Right Leg; Left Arm Sensor Applied: Yes Sensor Number: [id number] Sensor Location : Cord Clamp Vitamin K Given : Not Given Erythromycin Given: Not Given WEIGHT/LENGTH BABY A Birthweight (gm): 2760 Weight (lb): 6 Infant Weight (oz): 1 Length (in): 18.75 Infant Length (cm): 47.63 CORD INFORMATION BABY A No. Cord Vessels: 3 Nuchal Cord : Around Neck x2, Tight Nuchal Cord- Other: NECK AND BODY Cord Blood Taken: Yes Banking/Donate Info: NO Infant Suction: Mouth; Nose ASSESSMENT BABY A Infant Complications: Decreased Variability; Multiple Variable Decels Complications- Other: HIGH B/P,
== END 2018-10-04 15:10 | disposition home or self-care (01) | DRG 807 ==
LOC: OBT 03:15 → L-D 03:15 → OBT 04:10 → L-D 04:10 → PP1 10-01 05:43
PROVIDERS: ADMIT Obstetrics & Gynecology; ATTEND Obstetrics & Gynecology
PROC: 10E0XZZ Delivery of Products of Conception, External Approach (ICD-10-PCS; principal; 2018-10-01)
PROC: 0HQ9XZZ Repair Perineum Skin, External Approach (ICD-10-PCS; 2018-10-01)
DX: O13.3 Gestational [pregnancy-induced] hypertension without significant proteinuria, third trimester (principal); Z37.0 Single live birth; Z3A.39 39 weeks gestation of pregnancy; Z3A.40 40 weeks gestation of pregnancy; O69.1XX0 Labor and delivery complicated by cord around neck, with compression, not applicable or unspecified; O70.9 Perineal laceration during delivery, unspecified
CPT/HCPCS: 62322; 76815; 80053; 81001; 84560; 85025; 85384; 85610; 85730; 86592; 86850; 86900; 86901; 87070; 88307; 99464; G0463; J0131; J0290; J0595; J1580; J2543; J2590; J3010; J7120